=== PATIENT | female | born 1965 | race Caucasian/White ===

== ENCOUNTER 2020-10-13 13:41 | Inpatient (IN) | payer OTHER ==
[2020-10-13 15:16] LABS: BASOPHIL 0.1 % (0-2); EOSINOPHIL 0 % (0-5); HCT 37.1 % (37.0-47.0); HGB 12.8 g/dl (12.5-16.0); LYMPHOCYTE 1.9 % (15-48); MCH 30.5 pg (25.0-31.0); MCHC 34.5 g/dL (32.0-36.0); MCV 88.3 fL (78.0-100.0); MONOCYTE 4.9 % (0-12); MPV 10.5 fL (6.0-9.5); NEUTROPHIL 91.5 % (41-80); NRBC 0; PLT 252 K/uL (150-400); RDW 12.6 % (11.5-14.0); WBC 29.2 K/uL (4.0-10.5)
[2020-10-13 15:21] LABS: INR 1.1 (0.9-1.2); PROTHROMBIN TIME 13.5 SECONDS (11.4-13.6); PTT 35.8 SECONDS (22.2-34.7)
[2020-10-13 15:23] LABS: BILIRUBIN NEGATIVE (NEGATIVE); BLOOD TRACE-INTACT Ery/uL (NEGATIVE); CLARITY CLEAR (CLEAR); COLOR YELLOW (YELLOW); GLUCOSE (U) 1+ mg/dL (NORMAL); LEUKOCYTES NEGATIVE Leu/uL (NEGATIVE); NITRITE NEGATIVE (NEGATIVE); PROTEIN NEGATIVE (NEGATIVE)
[2020-10-13 15:33] LABS: TRANSITIONAL EPITHELIAL CELLS RARE
[2020-10-13 15:36] LABS: LACTIC ACID 2.4 mmol/L (0.4-1.9)
[2020-10-13 15:44] LABS: ALBUMIN 3.1 g/dL (3.4-5.0); ALKALINE PHOSHATASE 108 U/L (46-116); ALT 24 U/L (14-59); AST 24 U/L (15-37); BILIRUBIN - TOTAL 0.5 mg/dL (0.2-1.0); BUN 16 mg/dL (7-18); BUN/CREAT RATIO (CALC) 20.8 RATIO; CHLORIDE 95 mmol/L (98-107); CO2 (BICARBONATE) 26 mmol/L (21-32); CREATININE 0.77 mg/dL (0.51-0.95); GLUCOSE 152 mg/dL (74-106); POTASSIUM 2.9 mmol/L (3.5-5.1); TOTAL PROTEIN 7.1 g/dL (6.4-8.2)
[2020-10-13 16:28] LABS: CORONAVIRUS 2019 SARS-COV-2 NEGATIVE (NEGATIVE); INFLUENZA A NAA NEGATIVE (NEGATIVE)
[2020-10-13 17:31] LABS: AMPHETAMINES NEGATIVE (NEGATIVE); BARBITURATES NEGATIVE (NEGATIVE); ECSTASY (MDMA) NEGATIVE (NEGATIVE); MARIJUANA (THC) NEGATIVE (NEGATIVE); METHADONE NEGATIVE (NEGATIVE); OPIATES NEGATIVE (NEGATIVE); OXYCODONE NEGATIVE (NEGATIVE)
[2020-10-13 18:10] LABS: PRO-BNP 1415 pg/mL (<125)
[2020-10-14 05:57] LABS: BASOPHIL 0.3 % (0-2); EOSINOPHIL 0 % (0-5); HCT 37.8 % (37.0-47.0); HGB 12.3 g/dl (12.5-16.0); MCH 30.8 pg (25.0-31.0); MCHC 32.5 g/dL (32.0-36.0); MCV 94.5 fL (78.0-100.0); MONOCYTE 2.9 % (0-12); MPV 10.6 fL (6.0-9.5); NEUTROPHIL 92.8 % (41-80); NRBC 0; PLT 186 K/uL (150-400)
[2020-10-14 05:58] LABS: WBC 23.3 K/uL (4.0-10.5)
[2020-10-14 06:23] LABS: ALBUMIN 2.4 g/dL (3.4-5.0); BILIRUBIN - TOTAL 0.7 mg/dL (0.2-1.0); BUN/CREAT RATIO (CALC) 16.5 RATIO; CREATININE 0.91 mg/dL (0.51-0.95); GLOBULIN (CALCULATION) 3.1 g/dL; POTASSIUM 3.7 mmol/L (3.5-5.1); TOTAL PROTEIN 5.5 g/dL (6.4-8.2)
[2020-10-16 05:40] LABS: BASOPHIL 0.3 % (0-2); EOSINOPHIL 0.4 % (0-5); HCT 32.8 % (37.0-47.0); HGB 10.7 g/dl (12.5-16.0); LYMPHOCYTE 9.7 % (15-48); MCH 29.6 pg (25.0-31.0); MCHC 32.6 g/dL (32.0-36.0); MCV 90.6 fL (78.0-100.0); MONOCYTE 5.1 % (0-12); MPV 10.4 fL (6.0-9.5); NEUTROPHIL 82.7 % (41-80); NRBC 0; PLT 223 K/uL (150-400); RBC 3.62 M/uL (4.20-5.40); RDW 13.2 % (11.5-14.0); WBC 17.3 K/uL (4.0-10.5)
[2020-10-16 05:57] LABS: BUN/CREAT RATIO (CALC) 16.1 RATIO; CREATININE 0.87 mg/dL (0.51-0.95); POTASSIUM 3.9 mmol/L (3.5-5.1)
[2020-10-17] MEDS ORDERED: OXYCODONE-ACET1 EAC1 PO (12:14)
[2020-10-17] MEDS ORDERED: CLONIDINE HCL0.1 MG PO (12:15)
[2020-10-17] MEDS ORDERED: CEPHALEXIN500 MG PO (12:15)
[2020-10-17] MEDS ORDERED: BACTRIM DS TAB1 EACH PO (12:16)
[2020-10-17] MEDS ORDERED: K-DUR20 MEQ PO (12:17)
== END 2020-10-17 15:16 | disposition home or self-care (01) | DRG 872 ==
LOC: FER 13:41 → FTCU 17:17 → FMS 10-14 17:25
PROVIDERS: Emergency Medicine; Internal Medicine; ADMIT Allergy & Immunology Allergy
DX: A41.9 Sepsis, unspecified organism (principal); L03.116 Cellulitis of left lower limb; F11.13 Opioid abuse with withdrawal; I10 Essential (primary) hypertension; F17.200 Nicotine dependence, unspecified, uncomplicated; E87.6 Hypokalemia; B96.20 Unspecified Escherichia coli [E. coli] as the cause of diseases classified elsewhere; I35.8 Other nonrheumatic aortic valve disorders; Z20.822 Contact with and (suspected) exposure to COVID-19; Z85.42 Personal history of malignant neoplasm of other parts of uterus; Z85.43 Personal history of malignant neoplasm of ovary; Z90.710 Acquired absence of both cervix and uterus; Z98.51 Tubal ligation status
CPT/HCPCS: 36415; 71045; 71275; 80048; 80053; 80202; 80305; 81001; 83036; 83605; 83880; 84145; 84484; 85025; 85610; 85730; 87040; 87088; 87449; 93005; 93971; 97162; 97165; G0480; J1170; J1650; J1885; J2543; J3370; J3480; J7050; J7120; Q9967; U0002